=== PATIENT | male | born 1965 | race Caucasian/White ===

== ENCOUNTER → 2024-10-23 08:05 | Outpatient (REF) | payer BC, SELFPAY | LOC: HWRCS 08:05 | PROVIDERS: ATTENDING PHYSICIAN Physician Assistant; FAMILY PHYSICIAN Family Medicine | DX: I25.10 Atherosclerotic heart disease of native coronary artery without angina pectoris (principal); I77.810 Thoracic aortic ectasia | CPT/HCPCS: 93306 ==